=== PATIENT | female | born 1950 | race Caucasian/White ===

== ENCOUNTER 2016-06-23 07:22 | Outpatient (CLI) | payer MEDICARE, BC, MEDICAID ==
[2016-06-23] VITALS (22 sets, daily range): BP systolic 94–138; BP diastolic 64–97; PULSE 102–136; RESP 16–27; TEMP 97.7–98.6; O2SAT 90–95; Ht 160 cm; Wt 91.6 kg
[~2016-06-23] VITALS: Ht 160 cm; Wt 91.6 kg
[~2016-06-23 07:22] MED LIST: BUME2TAB18 PO; CARV25TA PO; ERGO400C PO; LEVE500T9 PO; LEVO25TA9 PO; LISI-625 PO; NITR0.4T39 SL; POTA-81 PO; RIVA20TA PO; SPIR25TA4 PO; VENL37.572 PO
--- NOTE | 2016-06-23 07:35 | NUR ---
ADMIT Pt admitted to room 126 for pacemaker insertion. Pt ambulatory and denies SOA, CP and N/V at this time. Will continue to monitor.
--- NOTE | 2016-06-23 08:00 | NUR ---
DNR Status change to Full Code Pt requests that DNR status be changed to FULL CODE. Requests to disregard papers on file.
[2016-06-23 08:23] LABS: BASOPHILS # (AUTO) 0.1 T/MM3 (0-0.2); BASOPHILS % (AUTO) 0.6 % (0-2); EOSINOPHILS # (AUTO) 0.2 T/MM3 (0-0.5); HCT - HEMATOCRIT 47.3 % (36-46); IMMATURE GRANULOCYTE # (AUTO) 0.02 T/MM3 (0.00-0.03); IMMATURE GRANULOCYTE % (AUTO) 0.2 % (0.0-0.5); LYMPHOCYTES # (AUTO) 1.8 T/MM3 (1-4.8); LYMPHOCYTES % (AUTO) 19.2 % (23-45); MEAN CORPUSCULAR HGB 30.2 UUG (26-34); MEAN CORPUSCULAR HGB CONC(MCHC 33.8 GM/DL (31-37); MEAN CORPUSCULAR VOLUME 89.4 UM3 (80-100); MEAN PLATELET VOLUME 11.3 UM3 (9.4-12.4); MONOCYTES % (AUTO) 10.3 % (0-9.0); NEUTROPHILS #(AUTO)-ABSOLUTE 6.3 T/MM3 (1.8-7.7); NEUTROPHILS % (AUTO) 67.7 % (33-66); RED BLOOD COUNT 5.29 M/MM3 (4.00-5.20); WBC - WHITE BLOOD COUNT 9.4 T/MM3 (4.5-11.0)
[2016-06-23] MEDS ORDERED: NIAC500T22 PO (08:25)
[2016-06-23 08:34] LABS: ALBUMIN 4.5 G/DL (3.5-5.0); ALBUMIN/GLOBULIN RATIO 1.2 RATIO (1.1-2.2); ALKALINE PHOSPHATASE 113 U/L (38-126); ALT (SGPT) 29 U/L (9-52); ANION GAP 11 MEQ/L (5-15); AST (SGOT) 32 U/L (14-36); BUN/CREATININE RATIO 39 RATIO (6-26); CALCIUM 9.3 MG/DL (8.4-10.2); CHLORIDE 105 MEQ/L (98-107); CO2 - CARBON DIOXIDE 25 MEQ/L (22-30); CREATININE 0.9 MG/DL (0.7-1.2); GLOMERULAR FILTRATION RATE 63; GLUCOSE 128 MG/DL (65-110); SODIUM 141 MEQ/L (134-144); TOTAL PROTEIN 8.2 G/DL (6.3-8.2)
--- NOTE | 2016-06-23 09:32 | NUR ---
PROCEDURE PT TO [facility] DRIVER PER CATH CART. ATTENDING.
[2016-06-23] MEDS ORDERED: NORMAL SALINE 1,000 ML ONE (09:44)
[2016-06-23] MEDS ORDERED: FENTANYL 100mcg/2ml INJECTION ONE ×2 (09:46→10:52)
[2016-06-23] MEDS ORDERED: CEFAZOLIN 1 GRAM INJECTION ONE (09:46)
[2016-06-23] MEDS ORDERED: SALINE FLUSH 10ml SYRINGE ONE ×3 (09:46→10:52)
[2016-06-23] MEDS ORDERED: MIDAZOLAM 2mg/2ml INJECTION ONE ×2 (09:46→10:57)
[2016-06-23] MEDS ORDERED: WATER FOR INJECTION 20 ML ONE (09:46)
[2016-06-23] MEDS ORDERED: BACITRACIN INJ. 50,000 UNITS VL ONE (09:47)
[2016-06-23] MEDS ORDERED: LIDOCAINE 1% (10mg/ml) 30ml SDV ONE (09:47)
--- NOTE | 2016-06-23 10:30 | NUR ---
CM CM ATTEMPTED VISIT, PATIENT IS AT PROCEDURE, NO FAMILY IN ROOM. CM LEFT CONTACT INFORMATION.
[2016-06-23] MEDS ORDERED: METOPROLOL 5mg/5ml INJECTION IV ONE (11:03)
--- NOTE | 2016-06-23 11:48 | NUR ---
RETURN PT RETURNED TO ROOM 126 PER CATH CART. TRANSFERRED TO .. BED WITH ASSIST OF 2 USING SLIDE BOARD. INSERTION SITE COVERED WITH DRESSING WHICH IS D&I. SLING IN PLACE. PT RATES INCISIONAL PAIN 2/10. AT BEDSIDE.
[2016-06-23] MEDS ORDERED: OXYCODONE/APAP 5mg/325mg TABLET PO PRN (12:45)
[2016-06-23] MEDS: CEFAZOLIN 1 G in NORMAL SALINE 100 ML IV SCH ×2 (13:54→20:36)
--- NOTE | 2016-06-23 14:59 | DI ---
Indication: ITS.REASON: icd PROCEDURE: CHEST 1 VIEW: Encounter: Initial Comparison: February 08, 2016 Findings: New left-sided single lead pacemaker defibrillator with a right ventricular lead. No evidence of lead fracture or discontinuity. Prior CABG and cardiac valve replacement. No pneumothorax. Lungs are grossly clear. Heart size and mediastinal contours are stable. Pulmonary vascularity appears normal. Impression: New left pacemaker defibrillator without evidence of immediate complication. .
[2016-06-23] MEDS: LEVETIRACETAM 500 MG TABLET PO SCH (18:30)
[2016-06-23] MEDS: CARVEDILOL 25 MG TABLET PO SCH (18:31)
[2016-06-23] MEDS: BUMETANIDE 1 MG TABLET PO SCH ×2 (18:32→21:00)
[2016-06-23] MEDS: VENLAFAXINE XR 37.5 MG CAPSULE PO SCH (18:37)
--- NOTE | 2016-06-23 19:40 | NUR ---
STATUS PT HAS COMPLETED DISCHARGE CRITERIA. UP TO BR AND TO CHAIR WITH ASSIST OF 1. DENIES NEED FOR PAIN MED. DRESSING REMAINS D&I. SLING STILL IN PLACE. PT TOLERATING SOLID FOOD WITHOUT N/V.
[2016-06-23] MEDS ORDERED: BUMETANIDE 1 MG TABLET PO SCH (21:00)
[2016-06-23] MEDS: ACETAMINOPHEN 325 MG TABLET PO PRN (21:17)
[2016-06-24 00:22] VITALS: BP 138/93; PULSE 108; RESP 16; O2SAT 96
[2016-06-24 00:28] VITALS: TEMP 96.7
--- NOTE | 2016-06-24 01:48 | NUR ---
Chart Check 24 hour chart check completed
[2016-06-24 04:19] VITALS: BP 112/81; PULSE 107; RESP 14; TEMP 98.4; O2SAT 92
[2016-06-24 04:50] LABS: BASOPHILS % (AUTO) 0.4 % (0-2); EOSINOPHILS # (AUTO) 0.2 T/MM3 (0-0.5); HCT - HEMATOCRIT 45.9 % (36-46); HGB - HEMOGLOBIN 15.3 GM/DL (12-16); IMMATURE GRANULOCYTE # (AUTO) 0.02 T/MM3 (0.00-0.03); IMMATURE GRANULOCYTE % (AUTO) 0.2 % (0.0-0.5); LYMPHOCYTES # (AUTO) 1.7 T/MM3 (1-4.8); LYMPHOCYTES % (AUTO) 14.7 % (23-45); MEAN CORPUSCULAR HGB 30.2 UUG (26-34); MEAN CORPUSCULAR HGB CONC(MCHC 33.3 GM/DL (31-37); MEAN CORPUSCULAR VOLUME 90.5 UM3 (80-100); MEAN PLATELET VOLUME 11.7 UM3 (9.4-12.4); MONOCYTES % (AUTO) 8.6 % (0-9.0); NEUTROPHILS #(AUTO)-ABSOLUTE 8.4 T/MM3 (1.8-7.7); NEUTROPHILS % (AUTO) 74.1 % (33-66); RED BLOOD COUNT 5.07 M/MM3 (4.00-5.20); WBC - WHITE BLOOD COUNT 11.4 T/MM3 (4.5-11.0)
[2016-06-24 05:11] LABS: ANION GAP 12 MEQ/L (5-15); BUN/CREATININE RATIO 33 RATIO (6-26); CALCIUM 9.2 MG/DL (8.4-10.2); CHLORIDE 104 MEQ/L (98-107); CO2 - CARBON DIOXIDE 24 MEQ/L (22-30); CREATININE 0.9 MG/DL (0.7-1.2); GLOMERULAR FILTRATION RATE 63; GLUCOSE 131 MG/DL (65-110); POTASSIUM 3.8 MEQ/L (3.6-5); SODIUM 140 MEQ/L (134-144)
--- NOTE | 2016-06-24 06:21 | NUR ---
SHIFT SUMMARY PATIENT IS ALERT AND ORIENTED THIS SHIFT. VITAL SIGNS HAVE BEEN STABLE ON ROOM AIR. PATIENT'S TELE HAS READ AFIB WITH ELEVATED HEART RATE THIS SHIFT. PATIENT IS UP WITH STAND BY AND AMBULATES WELL. INCISION SITE IS DRY AND INTACT. PATIENT BECAME RESTLESS IN THE NIGHT AND WENT FOR A WALK IN THE HALLS. OTHERWISE, PATIENT SLEPT WELL. WILL CONTINUE TO MONITOR.
[2016-06-24] MEDS ORDERED: LEVOTHYROXINE 25 MCG TABLET PO SCH (06:30)
[2016-06-24 08:00] VITALS: PULSE 122; RESP 16
[2016-06-24] MEDS ORDERED: POTASSIUM CHLORIDE 20 MEQ TABLET PO SCH (08:00)
[2016-06-24 08:33] VITALS: BP 96/65; PULSE 107; RESP 18; TEMP 97.9; O2SAT 93
[2016-06-24] MEDS ORDERED: SPIRONOLACTONE 25 MG TABLET PO SCH (09:00)
[2016-06-24] MEDS ORDERED: NIACINAMIDE 500 MG TABLET PO SCH (09:00)
[2016-06-24] MEDS ORDERED: LISINOPRIL 5 MG TABLET PO SCH (09:00)
--- NOTE | 2016-06-24 09:16 | DI ---
INDICATION: ITS.REASON: icd implant PROCEDURE: CHEST 2-VIEWS UPRIGHT (PA \T\ LAT) Encounter: Initial COMPARISON: June 23, 2016 FINDINGS: The lungs are clear without evidence of focal abnormal airspace opacity. There is no pleural effusion or pneumothorax. Left pacemaker appears stable. The heart size, mediastinal contours and pulmonary vascularity are unchanged. IMPRESSION: Stable appearance of the left cardiac pacemaker defibrillator. .
--- NOTE | 2016-06-24 09:23 | NUR ---
CM CM IN TO VISIT PATIENT, SHE IS A&O. PATIENT PLANS TO DISCHARGE HOME, DENIES ANY DISCHARGE NEEDS. WE TALKED ABOUT GETTING DRESSED WITHOUT USING LEFT ARM ABOVE HEAD. HER ONLY CONCERN WAS DOING LAUNDRY THE NEXT 2 WEEKS BUT STATES SHE CAN GET SOMEONE TO HELP HER. CM CONTACT INFORMATION PROVIDED. Addendum: 06/24/16 at 0924 by YAMEL GORDON RN Amended: Links added.
--- NOTE | 2016-06-24 09:26 | NUR ---
CM LACE SCORE IS 4, NO FURTHER FOLLOW UP IS NEEDED.
[2016-06-24] MEDS: CARVEDILOL 25 MG TABLET PO SCH (09:37)
[2016-06-24] MEDS: VENLAFAXINE XR 37.5 MG CAPSULE PO SCH (09:39)
[2016-06-24] MEDS: BUMETANIDE 1 MG TABLET PO SCH (09:39)
[2016-06-24] MEDS: ACETAMINOPHEN 325 MG TABLET PO PRN (11:01)
--- NOTE | 2016-06-24 12:03 | PNPDOC ---
Subjective Date DATE: 06/24/16 TIME: 11:58 Subjective MILD INCSIONAL PAIN WITH POSITION. NO ANGINA DYSPNEA OR PLEURITC CP. FEELS WELL . MILD SOA W EXERTION ABOUT BASELINE LITTLE TACHY THIS AM . RECEIVED HER HOME DOSE OF CARVEDOLOL 12.5 MG Objective Vital Signs Vital signs Vital Signs 06/24/16 06/24/16 06/24/16 06/24/16 00:22 00:28 04:19 08:00 Temp 96.7 98.4 Pulse 108 107 122 Resp 16 14 16 B/P 138/93 112/81 Pulse Ox 96 92 O2 Delivery Room Air Room Air Room Air 06/24/16 08:33 Temp 97.9 Pulse 107 Resp 18 B/P 96/65 Pulse Ox 93 O2 Delivery Room Air Telemetry Rhythm: Atrial Fibrillation Height (Feet): 5 Height (Inches): 3.00 Weight (Kilograms): 91.600 General Alert, Orientated x 3, Well Developed, No Acute Distress Eyes (Brief) EOMI, PERRL ENMT (Brief) mucosa moist Neck (Brief) NOT FOUND: JVD Respiratory (Brief) clear all russ, equal bilaterally Cardiovascular (Brief) other (nl S1 S2), NOT FOUND: pedal edema, peripheral edema, regular rate, regular rhythm Capillary Refill: <2 sec Abdomen (Brief) BS normo active x4, soft, NOT FOUND: distended, tender Extremities (Brief) Extremity : Extremity Finding: NOT FOUND: clubbing, cyanosis, edema, laceration, pain Neurologic (Brief) FOUND: cranial 2-12 intact, NOT FOUND: facial droop, ptosis Psychiatric (Brief) alert, normal affect Laboratory Laboratory Laboratory Tests 06/24/16 03:59 Laboratory Tests 06/24/16 03:59 Radiology nl LEAD POSITON NO PTX Assessment & Plan Plan/Intensity of Service S/P ICD IMPLANT SYSTOLIC CHF AF MILD RVR WITHY H/O HYPOTENSION . SWITCH CARVEDILOL TO METOPROLOL 200 MG DAILY FOR BETTER RATE CONTROL NL ICD PARAMETERS .TEACHING POVODED. [facility] LUC URIAS MD Jun 24, 2016 12:03
[2016-06-24] MEDS ORDERED: MINO100C43 PO (12:05)
[2016-06-24] MEDS ORDERED: OXYC1TAB8 PO (12:05)
[2016-06-24] MEDS ORDERED: METO200T37 PO (12:05)
[2016-06-24] MEDS: LEVETIRACETAM 500 MG TABLET PO SCH (13:42)
--- NOTE | 2016-06-24 13:50 | NUR ---
Patient will contact Defibrillator company to help setup wireless monitor for unit; since unable to get monitor to make contact with defib.
--- NOTE | 2016-06-24 13:50 | NUR ---
Dismissed at this time with after instructions, prescription given and IVs and monitors Dcd.
[2016-06-24] MEDS ORDERED: MINOCYCLINE 100 MG CAPSULE PO SCH (18:00)
[2016-06-27] MEDS ORDERED: RIVAROXABAN 20 MG TABLET PO SCH (17:30)
== END 2016-06-24 13:50 | disposition home or self-care (01) ==
LOC: CATH 07:22 → SRG 07:31 → CATH 06-24 13:50 → SRG 06-24 14:11
PROVIDERS: ATTEND Internal Medicine Cardiovascular Disease
DX: I11.0 Hypertensive heart disease with heart failure (principal); I50.1 Left ventricular failure, unspecified; I48.2 Chronic atrial fibrillation; I34.0 Nonrheumatic mitral (valve) insufficiency; F32.9 Major depressive disorder, single episode, unspecified; Z79.02 Long term (current) use of antithrombotics/antiplatelets; Z79.899 Other long term (current) drug therapy; Z86.73 Personal history of transient ischemic attack (TIA), and cerebral infarction without residual deficits
CPT/HCPCS: 33249; 36415; 71010; 71020; 80048; 80053; 85025; 93005; A9270; C1722; C1895; J0690; J2250; J3010; J7030; J7050; L3650; Q9967